=== PATIENT | female | born 1985 | race Caucasian/White ===

== ENCOUNTER → 2016-07-09 | Outpatient (REF) | payer OTHER ==
[~2016-07-09] MED LIST: /BUSP5TA PO; CIPR500T89 PO; CRES5TAB PO; FLAG500T PO; FURO20TA2 PO; GLUC1000 PO; HYDR25TA8 PO; IBUP600T OR; LISI5TAB PO; TOPI25TA2 OR; VENL75TA2 PO; ZOFR4TAB3 PO
== END ==
LOC: M SFHCCLAY 08:54
PROVIDERS: ATTEND Nurse Practitioner Family
DX: E11.9 Type 2 diabetes mellitus without complications (principal); E78.4 Other hyperlipidemia; E55.9 Vitamin D deficiency, unspecified

== ENCOUNTER → 2016-11-17 | Outpatient (REF) | payer OTHER ==
[~2016-11-17] MED LIST changes: +CIPR-249 PO; -CIPR500T89 PO
== END ==
LOC: M SFHCCLAY 10:05
PROVIDERS: ATTEND Nurse Practitioner Family
DX: E78.4 Other hyperlipidemia (principal); E11.9 Type 2 diabetes mellitus without complications; E55.9 Vitamin D deficiency, unspecified